=== PATIENT | female | born 1935 | race Caucasian/White ===

== ENCOUNTER 2022-02-26 15:21 | Emergency (ER) | payer MEDICAID ==
[~2022-02-26] VITALS: Ht 157.5 cm; Wt 60.0 kg
[2022-02-26] MEDS ORDERED: MORPHINE SULFATE 10 MG/ML CPJ IM ONE (17:15)
[2022-02-26 18:43] VITALS: BP 136/80
[2022-02-26] MEDS ORDERED: T3 PO (19:00)
[2022-02-26] MEDS ORDERED: IMOD MT (19:00)
== END 2022-02-26 19:21 | disposition home or self-care (01) ==
LOC: ER 15:21
DX: S80.01XA Contusion of right knee, initial encounter (principal); W01.0XXA Fall on same level from slipping, tripping and stumbling without subsequent striking against object, initial encounter; Y93.89 Activity, other specified; Y92.018 Other place in single-family (private) house as the place of occurrence of the external cause; Z98.890 Other specified postprocedural states
CPT/HCPCS: 73560; 99283